=== PATIENT | male | born 1965 | race Caucasian/White ===

== ENCOUNTER 2016-05-01 14:17 | Inpatient (IN) | payer BC ==
--- NOTE | ~2016-05-01 | HP ---
History And Physical [place] [id number] [facility] [place]. [address] NAME: BRISEYDA JOHNSTON : 67 STATUS : ADM IN [facility]#: [id number] AGE: 50 ADM/REG DATE : 05/01/16 MR#: [id number] REPORT SERV DATE: 05/01/16 DICTATED BY: MARTI SANABRIA DATE: 05/01/16 REPORT STATUS : Draft TRANSCRIBED BY: MODL DATE: 05/01/16 DATE OF ADMISSION: 05/01/2016 PRESENT ILLNESS: This 50-year-old white male is admitted at the emergency room with possible osteomyelitis of the spine. Approximately a year ago, he had spine surgery by Dr. Rangel at [facility] defined as a "scraping" of the lumbar spine for symptomatic back pain. Postoperative course was apparently complicated by a dural leak. The patient suggested that he had a "baseball sized" fluid collection visible externally that never drained to the surface and was treated conservatively. He was off work for about three months, but it ultimately resolved and there was no reexploration. He has been doing fine ever since. Approximately two weeks ago, he tripped over a curb and landed on his left knee. Soon thereafter, he began to have pain in his left back that has progressed now to a 9/10 on the pain scale with pain progressively radiating down the left leg. He has not had bowel or bladder incontinence, weakness in the legs, numbness or tingling. He denies fever, chills, or night sweats. He has had some mild self-induced weight loss. He has not had any recent illness in the last few months requiring antibiotics. He did have a sinus infection several months ago treated with cough syrup. Chronic health history mostly notes diabetes on insulin approximately 10 years without recognized complication. He has mild hypertension with no coronary artery disease. He has had kidney stones. Only surgical history is back surgery and tonsillectomy. MEDICATIONS: As listed and include b.i.d. insulin, metformin, Januvia, glipizide, and low- dose lisinopril. ALLERGIES: HE DENIES DRUG ALLERGIES. SOCIAL HISTORY: No tobacco. Minimal alcohol. He is , has two daughters. 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 REVIEW OF SYSTEMS: Otherwise is mostly notable for the pain as above. Sugars have been more elevated recently. No recognized pulmonary complaint, cardiac awareness, GI complaint including bowel or bladder incontinence. No voiding complaints. No dysesthesias in the legs. He has basically been taking ibuprofen for pain relief. PHYSICAL EXAMINATION: GENERAL: He presents to the emergency room, apparently was fairly uncomfortable earlier on. When I see him, he has had some Dilaudid, seems to be comfortable. Moves comfortably. There is no fever. VITAL SIGNS: Blood pressure 133/77. He is in sinus rhythm. HEENT: There is no icterus. There are no evidence of embolic phenomena in the eyes or nail History And Physical [address] [place]. [address] NAME: BRISEYDA JOHNSTON : 67 STATUS : ADM IN [facility]#: [id number] AGE: 50 ADM/REG DATE : 05/01/16 MR#: [id number] REPORT SERV DATE: 05/01/16 DICTATED BY: MARTI SANABRIA DATE: 05/01/16 REPORT STATUS : Draft TRANSCRIBED BY: CLYDE DATE: 05/01/16 beds. No cervical adenopathy. HEENT: Otherwise, normal. LUNGS: Clear. SPINE: Surgery in the lumbar spine looks intact. There is really no palpable tenderness, fluctuance, warmth, erythema, or bruising. HEART: Regular without ectopy. No murmur. No localizing abdominal mass or tenderness. EXTREMITIES: Lower extremities show intact pedal pulses. No edema. He has intact light sensory examination. DTRs are diminished at the knees. Downgoing toes bilaterally. Muscular tendon seems intact. LABORATORY DATA: CT scan of the lumbar spine is being read as showing osteolytic destructive process at L4 and L5 with sclerotic reactions in the bodies there in and findings suggestive strongly of severe [place] [address], hemoglobin 14.2, sedimentation rate 25, sodium 138, potassium 4.2, BUN 12, creatinine 0.9. Blood sugar nonfasting 244 and C-reactive protein 19. IMPRESSION: 1. 50-year-old with increasing back pain, now with x-ray evidence suggesting osteomyelitis. He is about one year out from spine surgery, apparently complicated by dural leak. 2. Diabetes, on insulin. 3. Hypertension, mild. PLAN: The patient is being admitted to Dr. Zavaleta. Dr. Wright has been consulted. We will do surveillance cultures and defer anticipated surgical expiration to Dr. Wright. We will put him just on insulin with sliding scale coverage. We will hold any antibiotics at present pending Dr. Wright' perspective. SANDEE/CLYDE Marti Sanabria M.D. / [id number] CC: Israel Tom D.O.
--- NOTE | ~2016-05-01 | OP ---
Record Of Operation [facility] [address] [place]. [address] NAME: BRISEYDA JOHNSTON : 67 STATUS : ADM IN [facility]#: [id number] AGE: 50 ADM/REG DATE : 05/01/16 MR#: [id number] REPORT SERV DATE: 05/03/16 DICTATED BY: JANI BENTLEY DATE: 05/03/16 REPORT STATUS : Draft TRANSCRIBED BY: MODL DATE: 05/03/16 DATE OF PROCEDURE: 05/03/2016 PREOPERATIVE DIAGNOSES: 1. 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 2. Severe foraminal stenosis, left L4-5. POSTOPERATIVE DIAGNOSES: 1. 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 2. Severe foraminal stenosis, left L4-5. PROCEDURES: 1. Microscopic and navigation-assisted surgery. 2. Left L4-5 hemilaminectomy, foraminotomy, and facetectomy. 3. Transforaminal diskectomy with irrigation and debridement of the interbody space and disk. 4. Anterior interbody titanium cage insertion. 5. Posterolateral interbody fusion with local bone graft allograft. 6. Posterior percutaneous Voyager instrumentation, L4-5. SURGEON: Jani Bentley D.O. VETERINARY TECHNICIAN INSTRUCTOR: Jimbo Umana. ANESTHESIA: General. BLOOD LOSS: 50 mL. INDICATIONS FOR SURGERY: Indications for surgery and risks were explained. They are listed in history and physical. See that for detail. DESCRIPTION OF OPERATION: Antibiotic prophylaxis given. Neurophysiology monitoring leads inserted. The patient brought to the operative suite, where general anesthetic including endotracheal intubation was administered. Elizondo catheter was inserted with sterile technique. The patient was placed prone on a Bennie spine frame. Bony prominences were carefully padded. Thoracolumbar spine was scrubbed with Hibiclens solution. DuraPrep was painted. Sterile drapes applied. Because of the complexity of surgery and the need to identify correct level of surgery intraoperatively as well as desire to carry out the safest most precise dissection with the least amount of radiation exposure, I felt intraoperative navigation was mandatory. A small stab wound was carried out over the right posterior superior iliac spine. A percutaneous pin with navigational frame attached was inserted in PSIS. Intraoperative CT scan with O-arm obtained, CT information used to register the navigational system. Record Of Operation [facility] [address] [place]. [address] NAME: BRISEYDA JOHNSTON : 67 STATUS : ADM IN PAT#: [id number] AGE: 50 ADM/REG DATE : 05/01/16 MR#: [id number] REPORT SERV DATE: 05/03/16 DICTATED BY: JANI BENTLEY DATE: 05/03/16 REPORT STATUS : Draft TRANSCRIBED BY: CLYDE DATE: 05/03/16 With navigational assistance, I identified the facet joint of L4-5. Just lateral to the facet joint on the left side, a 2.5 cm skin incision was carried out. A blunt navigated probe placed through the fascia and muscle and docked over the facet joint. Muscle dilators were inserted followed by placement of a tubular retractor attached to an arm mount on the table. Microscope was sterilely draped and used throughout the remainder of the procedure. With navigational assistance, I identified the top of the pedicle of L5 and the anterior pedicle of L4. I debrided the capsule around the facet joint. I used navigation to identify the medial boundary of the facet joint where there had been a previous laminectomy. I then used a combination of cutting burs, ila burs, and 2 and 3 mm Kerrison rongeurs, and I worked from lateral to medial removing the entire superior articular process of L5, the inferior articular process of L4, the pars interarticularis of L4, and the remaining lamina as well as inferior articular process of L4. No dural tears occurred. I was able to completely debride the joint. There was facet hypertrophy that was definitely contributing to lateral foraminal stenosis and L4 nerve impingement. The disk space was rather swollen, boggy, and as we opened, a serous-type fluid was present. Cultures were taken. We cleaned out the disk space with curettes, rongeurs, and luis angel. We sent some of the disk itself for culturing. We also took a second set of cultures from the interbody space. We completely debrided the disk space and then copiously irrigated the interbody space. We were able to remove essentially 80% to 90% of the disk. There was a definite large filling defect in the left side of the inferior body of L4. After we had debrided the disk and copiously irrigated, the wound was carefully inspected. We then did a trial. I packed the cancellous allograft chips in the bone defect. Because of the infection, I would not use any PEEK material, instead I used a 9 mm in height oblong titanium mesh cage. Cage was inserted x2, initially just right of midline against the anterior longitudinal ligament and the second one just slightly left of midline and slightly posterior to the first cage. We then copiously filled the interbody space with a combination of the local bone graft and allograft. After the interbody fusion was completed, the retractor was removed. I then carried out a 2.5 to 3 cm skin incision on the right side just lateral to the facet joint as I had done on the left. I then used a Voyager percutaneous pedicle tap and screw store operations associate. I tapped the pedicles of L4 and 5 bilaterally. I then inserted polyaxial 6.5 x 50 mm Voyager screws at all locations. After the screws were placed, a 35 mm contoured lordotic dumbbell rods were placed in the top portion of the screw extenders, the adolfo reduced into the tulip of the pedicle screw. The set screw was inserted and tightened with a torque wrench providing rigid stability. Wounds were irrigated. The fascial opening was closed with interrupted #1 Vicryl suture, the subcutaneous tissue closed with 2-0 Vicryl sutures, 2-0 vertical mattress nylon suture used for skin closure. Sterile dressings applied. The patient returned to the supine position, awakened, extubated, taken to recovery room in satisfactory condition having tolerated procedure well. BRAULIO/CLYDE Jani Bentley D.O. Record Of Operation [address] [address] NAME: BRISEYDA JOHNSTON : 67 STATUS : ADM IN [facility]#: [id number] AGE: 50 ADM/REG DATE : 05/01/16 MR#: [id number] REPORT SERV DATE: 05/03/16 DICTATED BY: JANI BENTLEY DATE: 05/03/16 REPORT STATUS : Draft TRANSCRIBED BY: MODL DATE: 05/03/16 / [id number] CC: Wander Zavaleta M.D.
--- NOTE | ~2016-05-01 | DS ---
Discharge Summary [facility] [address] [place]. [address] NAME: BRISEYDA JOHNSTON : 67 STATUS : DIS IN PAT#: [id number] AGE: 50 ADM/REG DATE : 05/01/16 MR#: [id number] REPORT SERV DATE: 05/14/16 DICTATED BY: DESTINEY PHAM DATE: 05/13/16 REPORT STATUS : Draft TRANSCRIBED BY: MODSunny DATE: 05/13/16 Data Collection from hospitalization DISCHARGE DIAGNOSES: 1. Osteomyelitis, L4-5. 2. Diskitis, L4-5. 3. Type 2 diabetes mellitus. 4. Hypokalemia. 5. Hypertension. CONSULTATIONS: 1. Jani Wright D.O. 2. Charlie Jackson M.D. PROCEDURES PERFORMED: 1. Microscopic and navigation-assisted surgery; left L4-5 hemilaminectomy, foraminotomy, and facetectomy; transforaminal diskectomy with irrigation and debridement of the interbody space and disk; anterior interbody titanium cage insertion; posterolateral interbody fusion with local bone graft allograft; posterior percutaneous Voyager instrumentation, L4-5 on 05/03/2016. 2. MRI of the lumbar spine with and without contrast on 05/01/2016. 3. CT scan of the lumbar spine without contrast on 05/01/2016. PATHOLOGY: Bone and soft tissue, lumbar spine - fragments of bone with chronic osteomyelitis, also fragments of soft tissue with marked acute inflammation. MEDICATIONS: Cipro 500 mg every 12 hours, Glucotrol XL 2.5 mg daily, Advil 400 mg twice a day as needed, Lantus 30 units subcutaneously every morning and 50 units subcutaneously at bedtime, Prinivil 2.5 mg every morning, Fortamet 500 mg twice a day, Robaxin 750 mg every eight hours, Roxicodone 10 mg every four hours as needed, and Januvia 100 mg every morning. CONDITION AT DISCHARGE: Stable. DISPOSITION: The patient was discharged home to be followed by home health care on a 2200- calorie diabetic diet with activities as instructed. He would follow up with me on 05/12/2016. He would follow up with Dr. Charlie Jackson on 05/31/2016. He would follow up with Gloria Mayo on 05/18/2016. HOSPITAL COURSE: This is a 50-year-old man who presented to the emergency room with possible osteomyelitis of the spine. Approximately a year ago, he had spine surgery by Dr. Rangel at [facility], which was described as "scraping" of the lumbar spine for symptomatic back pain. His postoperative course was apparently complicated by a dural leak. The patient had suggested that he had a "baseball sized" fluid collection visible externally that never drained and was treated conservatively. He had been off work for about three months, but it ultimately resolved and there was no reexploration. He had been doing fine ever since. Approximately two weeks prior to this admission, he tripped over a curb and landed on his left knee. Soon thereafter, he began to have pain in his left back that progressed to 9/10 on the pain scale with the pain progressively radiating down the left leg. He has not had Discharge Summary [address] [place]. [address] NAME: BRISEYDA JOHNSTON : 67 STATUS : DIS IN PAT#: [id number] AGE: 50 ADM/REG DATE : 05/01/16 MR#: [id number] REPORT SERV DATE: 05/14/16 DICTATED BY: DESTINEY PHAM DATE: 05/13/16 REPORT STATUS : Draft TRANSCRIBED BY: MODL DATE: 05/13/16 any bowel or bladder incontinence, weakness in the legs or numbness or tingling. He did have a sinus infection several months ago and had been treated with cough syrup. He was admitted to the hospital at this time for further evaluation and treatment. Upon admission, a CT scan of the lumbar spine revealed osteolytic destructive process at L4 and L5 with sclerotic reactions in the body there in and findings strongly suggestive of severe osteomyelitis. White blood cell count was 10,300. He was felt to have x-ray evidence suggesting osteomyelitis. Surveillance cultures were going to be obtained. Sliding scale insulin was started. He was seen by Dr. Jani Wright regarding intractable back pain, left hip and leg pain. An MRI of the lumbar spine had also been performed. The patient had severe disk degeneration and probable osteomyelitis and diskitis at L4-5. He has [id number] foraminal stenosis at left L4-5 and severe disk degeneration, [id number] left foraminal stenosis at L5-S1. It was felt that the best option would be to proceed with left-sided decompression and facetectomy to resolve the foraminal stenosis. At the same time, diskectomy was completed, cultures would be reobtained prior to any antibiotics and reconstruction with interbody arthrodesis would be carried out. Sliding scale insulin continued. Plans were made to proceed with surgical intervention. On 05/03/2016, he was taken to the operating room where he underwent the above-mentioned procedure. He tolerated this well, and there were no complications. White blood cell count was 10.3. When he came in, it was 12 on the day prior to surgery and was now 15.3. His impression included spinal osteomyelitis/diskitis, possibly related to his past surgery, although it would be rather unusual as this had not given more trouble since that was over a year ago. It could be that he has bacteremia from some other source and it seeded the previous operative site. Cultures would be followed. Antibiotics would be adjusted as indicated. He is going to be covered empirically for now with vancomycin and cefepime. On postop day #1, he was feeling better. He was afebrile. White count was 15.3. Blood cultures were negative. Cultures from surgery were negative thus far. He was changed to oral medications. He was evaluated by Physical Therapy. He had mild discomfort. He was able to be up and around in his room. The Elizondo catheter was removed. He was urinating well. His T-max was 100. Sliding scale insulin continued. Levemir was increased. The next day, discharge planning was performed. He had no new symptoms. White count was 12.9. All cultures remained negative. On 05/06/2016, he had no new complaints. He was alert and cooperative. A PICC line was inserted. He had no new symptoms. Discharge instructions were given. Due to his improved and stable condition, he was discharged home to be followed by home health care with the above-stated instructions. Information collected by: Kavya Andino I submit the above information as my discharge summary. ALYSSA/CLYDE Destiney Pham M.D. / [id number] Discharge Summary [address] [place] [address] NAME: BRISEYDA JOHNSTON : 67 STATUS : DIS IN PAT#: [id number] AGE: 50 ADM/REG DATE : 05/01/16 MR#: [id number] REPORT SERV DATE: 05/14/16 DICTATED BY: DESTINEY PHAM DATE: 05/13/16 REPORT STATUS : Draft TRANSCRIBED BY: MODL DATE: 05/13/16 CC: Israel Tom D.O. Mark Anderson, M.D.
--- NOTE | ~2016-05-01 | CN ---
Consultation Report [facility] [address] [place]. [address] NAME: BRISEYDA JOHNSTON : 67 STATUS : ADM IN PAT#: [id number] AGE: 50 ADM/REG DATE : 05/01/16 MR#: [id number] REPORT SERV DATE: 05/02/16 DICTATED BY: JANI BENTLEY DATE: 05/02/16 REPORT STATUS : Draft TRANSCRIBED BY: MODSunny DATE: 05/02/16 DATE OF CONSULTATION: CHIEF COMPLAINT: Intractable back pain, left hip, leg pain. 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 Elliot Rangel. The only issue with the surgery was the patient had a postoperative dural tear, and did have a visible fluid collection, but it never drained and ultimately was treated nonoperatively. The dural tear ultimately did resolve. The patient has had no headaches or other sequelae of the dural tear. It did take him about three months to return to normal activity and back to work, but he did return to work as a REPAIRER [employer] W[employer]ING [employer]ES unrestricted and has had no issues until two weeks ago. When he fell, landing on his left knee and his left knee directly hit the ground. He almost immediate onset of increasing amounts of back pain, left hip and leg pain. Now his pain is approximately 60% back, 40% leg. The pain has gotten so disabling that he came to the ER due to the pain. As noted in Dr. Jersey Hughes's history and physical, he has had no sequelae such as fever, chills, night sweats, etc. He has had really no evidence of infection. While lying flat in bed, he does not have a lot of pain. His pain is markedly worse when standing, walking, or when trying to sit for long periods of time. In the ER, the patient had a CT scan and to everyone's surprise, showed a marked decrease in the disk height of L4-5 and there was endplate disruption, particularly inferior endplate of L4, some disruption of the superior endplate of L5. This is all compatible with possible osteomyelitis, diskitis. A MRI was obtained and the MRI shows complete collapse of the disk space. There is a diskitis per the imaging. There is definitely involvement of the inferior interbody and the endplate of L4 as well as superior endplate of L5. When comparing the MRI from 04/2015 to the MRI 2017, there has been a marked change. In 2016, the disk was of almost normal height and did have some central and right-sided herniation. There was also central canal and lateral recess stenosis. The 2017 MRI does show the stenosis to be largely resolved, but he does have rather marked foraminal stenosis worse on the left than the right. The more importantly the disk is completely collapsed and there is diskitis, osteomyelitis per the MRI. In addition, there is incidental finding rather severe disk degeneration, collapse of the disk space, and moderate to severe foraminal stenosis on the left at L5-S1. This appears to be not a lot different than 2016, although it has slightly worsened as far as the collapse. Currently, the patient has no change in bowel or bladder function. Pain when in bed is only 4, but when sitting, standing, or walking it is still an 8 or a 9 on a scale of 0 to 10. The chart has been reviewed in its entirety. Past medical history, surgical history, current medications, allergies, social history, family history are all noted in the H and P by Dr. Jersey Hughes. PHYSICAL EXAMINATION: He is alert, cooperative, well oriented. He was able to turn himself in bed without problems. When percussing over the lower lumbar spine, he definitely has rather marked Consultation Report [facility] [id number] [place]. [address] NAME: BRISEYDA JOHNSTON : 67 STATUS : ADM IN [facility]#: [id number] AGE: 50 ADM/REG DATE : 05/01/16 MR#: [id number] REPORT SERV DATE: 05/02/16 DICTATED BY: JANI BENTLEY DATE: 05/02/16 REPORT STATUS : Draft TRANSCRIBED BY: MODL DATE: 05/02/16 pain. There is no swelling, erythema, or other abnormality. Just soft-tissue palpation is nontender and does not elicit any kind of painful response. Rafael signs are negative. Fabere signs are negative. Straight leg raising signs are negative. He has 1/4 patellar reflexes. Achilles reflexes are absent. There is some decreased sensation in the L5 distribution on the left compared to the right, but overall his motor strengths appear to be grossly normal. No evidence of myelopathy is found. Orthopedically, he has no pain with moving hips, knees, or ankles. There are pulses in all four extremities. No abnormal skin lesions are found. MRI reviewed and there are outlined as above and I agree with the reports as noted in the chart. ASSESSMENT: 1. Previous L4-5 decompressive laminectomy, diskectomy with postoperative CSF leak, treated nonoperatively. 2. Severe disk degeneration, probable osteomyelitis, diskitis L4-5. 3. Moderate to severe foraminal stenosis, left L4-5. 4. Severe disk degeneration, moderate to severe left foraminal stenosis L5-S1. RECOMMENDATIONS: At this time, obviously the most compelling reason for any intervention would be the diskitis, osteomyelitis of L4-5. If he has had problems with this since his surgery years ago, he has not had a lot of clinical symptoms, but the most likely time of introduction would have been at the time of the original surgery one year ago. If there has been some infection for year, this is fairly nonaggressive organism such as a status epidermis etc. Based on the above, the options are to either do a CT-guided aspiration and try to treat with just IV antibiotics. This does not resolve the underlying issue of rather foraminal stenosis that is present. If we did a CT-guided aspiration and it was negative, then we are faced with an open biopsy, etc. CT guided aspirations are a positive approximately 70% of the time in this facility and thus after discussion with the patient I believe the best option to proceed with a left-sided decompression and facetectomy to resolve the foraminal stenosis. At the same time, the diskectomy completed. Cultures reobtained prior to any antibiotics and reconstruction with interbody arthrodesis will be carried out. I have gone over the risks, benefits, alternatives, and expectations in great detail. Consent form will be signed. According to the patient, he wants to proceed to try to resolve this. Once improves, then he can return to a more gainful permanent employment. I have warned the patient that I believe there is an 80% chance. He will be able to return to his usual job. There is a 20% chance that he could have some long-term residual chronic back pain that would require altered job duties. ANGELIKA Jani Consultation Report [facility] [address] [address] NAME: BRISEYDA JOHNSTON : 67 STATUS : ADM IN PAT#: [id number] AGE: 50 ADM/REG DATE : 05/01/16 MR#: [id number] REPORT SERV DATE: 05/02/16 DICTATED BY: JANI BENTLEY DATE: 05/02/16 REPORT STATUS : Draft TRANSCRIBED BY: MODL DATE: 05/02/16 Millie Bentley / [id number] CC: Wander Zavaleta M.D.
--- NOTE | ~2016-05-01 | CN ---
Consultation Report [facility] [address] [place]. [address] NAME: BRISEYDA JOHNSTON : 67 STATUS : ADM IN PAT#: [id number] AGE: 50 ADM/REG DATE : 05/01/16 MR#: [id number] REPORT SERV DATE: 05/03/16 DICTATED BY: OLIVER MCNEAL DATE: 05/03/16 REPORT STATUS : Draft TRANSCRIBED BY: MODL DATE: 05/03/16 INFECTIOUS DISEASE CONSULT DATE OF CONSULTATION: REFERRING PHYSICIAN: Dr. Jani Wright. REASON FOR REFERRAL: Evaluation and treatment of spine infection. HISTORY OF PRESENT ILLNESS: The patient is a 50-year-old male. He has history of hypertension, diabetes mellitus, past kidney stones. A year ago, he had a lumbar spine surgery of some type, which I do not have the details of. This was done by Dr. Rangel at [facility]. He had a complication of a dural leak and it took about three months for that to resolve, but eventually it did without further intervention. He then was able to go back to work and has been doing fine until about two-three weeks ago when he fell at work on to his left knee and it was hard fall, jarring pain that radiated up into his back and then his back began to hurt, progressively worse and worse since then. It began to radiate down into his leg, so he came into the emergency room, was imaged, and on the CT scan, there were changes in the L4-5 disc and adjacent vertebral bodies suggestive of infection. He had no fevers, chills, malaise, or flu-like symptoms. His white blood cell count was elevated at 11.5, but exhibited no other signs to suggest infection. Antibiotics were fortunately held and he went to surgery and had a debridement while on no antibiotics this morning and material was submitted for cultures thus far and the Gram stain was back and it showed no organisms. He says he has not been on antibiotics for infections anywhere else on his body in the last six-eight months. No boils, urinary tract infections, etc. 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 PAST MEDICAL HISTORY: Otherwise unremarkable. MEDICATIONS: He has perioperative doses of vancomycin and Ancef. ALLERGIES: HE HAS NO KNOWN ANTIMICROBIAL ALLERGIES. SOCIAL HISTORY: He is . He has supportive family in the room with him. Nonsmoker. No history of alcohol or substance abuse. Employment as previously mentioned. FAMILY HISTORY: Noncontributory. PHYSICAL EXAMINATION: GENERAL: A nontoxic, adult male, in no acute distress. He is alert and oriented x3. VITAL SIGNS: His temperature of 98.3 with a pulse of 96, respirations 12, blood pressure 133/69, weight 111 kg. HEENT: Sclerae clear. No oral lesions. Consultation Report [address] [place]. [address] NAME: BRISEYDA JOHNSTON : 67 STATUS : ADM IN [facility]#: [id number] AGE: 50 ADM/REG DATE : 05/01/16 MR#: [id number] REPORT SERV DATE: 05/03/16 DICTATED BY: OLIVER MCNEAL DATE: 05/03/16 REPORT STATUS : Draft TRANSCRIBED BY: CLYDE DATE: 05/03/16 NECK: Supple without meningeal signs or lymphadenopathy. LUNGS: Clear anteriorly. HEART: Regular rate and rhythm. ABDOMEN: Soft, nontender. Positive bowel sounds. The wound was covered with a new surgical dressing, it was not removed. EXTREMITIES: Without clubbing, cyanosis, or edema. No swollen, red, or hot joints. No skin lesions or rashes noted. IV site without signs of inflammation in the right upper extremity. LABORATORY DATA: Blood work: His white count was 10.3 when he came in, it was 12 yesterday and 15.3 today, with a hematocrit of 37.9, platelets 258. Unremarkable differential on the white count. His sed rate yesterday was 28. BUN and creatinine are 17 and 0.86. IMPRESSION: Spinal osteomyelitis/discitis, potentially related to his past surgery, though it would be rather unusual as this has not given more trouble since that was over a year ago. It could be he has bacteremia from some other source and it seeded the previous operative site. RECOMMENDATIONS: 1. We will follow up the cultures tomorrow. We will adjust antibiotics as indicated. 2. For now, we will cover him empirically using vancomycin and cefepime. 3. Follow the patient with you. I appreciate very much your consulting on this patient. ZACARIAS Oliver Mcneal M.D. / [id number] CC: Israel Tom M.D. Scott Hodges, D.O.
[2016-05-01 10:54] LABS: BASOPHILS 0.2 %; BASOPHILS ABSOLUTE 0.02 10/3/uL (0.0-0.16); EOSINOPHILS 3.4 %; EOSINOPHILS ABSOLUTE 0.35 10/3/uL (0.0-0.53); HEMATOCRIT 41.1 % (40.0-51.0); HEMOGLOBIN 14.2 g/dL (13.6-17.8); IMMATURE GRANULOCYTES 0.2 %; IMMATURE GRANULOCYTES ABSOLUTE 0.02 10/3/uL (0.0-0.11); LYMPHOCYTES 16.6 %; MEAN CORPUS HGB CONC 34.5 g/dL (32.0-36.0); MEAN CORPUSCULAR HEMOGLOB 27.8 pg (26.0-34.0); MEAN PLATELET VOLUME 9.6 fL (9.2-13.0); MONOCYTES 8.8 %; NEUTROPHILS 70.8 %; NEUTROPHILS ABSOLUTE 7.28 10/3/uL (2.02-8.40); PLATELET COUNT 249 10/3/uL (150-400); RBC DISTRIBUTION WIDTH 13.5 % (12.0-16.0); WHITE BLOOD CELLS 10.3 10/3/uL (4.5-10.5)
[2016-05-01 10:56] LABS: MANUAL DIFF NO %; MEAN CORPUSCULAR VOLUME 80.6 fL (80-100)
[2016-05-01 11:07] LABS: BUN (BLOOD UREA NITROGEN) 12 MG/DL (6-23); CALCIUM, SERUM 9.2 MG/DL (8.5-10.4); CHLORIDE, SERUM 103 MMOL/L (96-112); CO2 (CARBON DIOXIDE) 25 MMOL/L (24-34); CREATININE 0.91 MG/DL (0.70-1.30); GFR AFRICAN AMERICAN 114 ML/MIN (>=60); GFR NON AFRICAN AMERICAN 99 ML/MIN (>=60); GLUCOSE, SERUM 244 MG/DL (60-99); POTASSIUM, SERUM 4.2 MMOL/L (3.5-5.3); SODIUM, SERUM 138 MMOL/L (135-148)
[2016-05-01 13:30] LABS: ASCORBIC ACID (UR NOT ORDER) NEG (NEG); BILIRUBIN, URINE NEGATIVE (NEG); ER URINALYSIS TAT 0 Hrs 18 Mins; KETONE, URINE NEGATIVE (NEG); LEUKOCYTE ESTERASE(NOT OR NEG (NEG); NITRITE (URINE) NEG (NEG); WBC (NOT ORDERED) (RFLEX) < 1 (0-5)
[2016-05-01 13:33] LABS: SED RATE 25 MM/HR (0-15)
[2016-05-01 13:41] LABS: C-REACTIVE PROTEIN 19.1 MG/L (<8.0)
[~2016-05-01 14:17] MED LIST: ADVIL PO; BIOFREEZE OINTMENT TOP; FORTAMET500 MG PO; GLUCXL2.5 PO; JANUVIA100 MG PO; LANTUSCART SC; PRIN2.5 PO; SALONPAS-HOT TOP
[2016-05-02 05:03] LABS: BASOPHILS 0.1 %; BASOPHILS ABSOLUTE 0.01 10/3/uL (0.0-0.16); EOSINOPHILS 0.1 %; EOSINOPHILS ABSOLUTE 0.01 10/3/uL (0.0-0.53); HEMATOCRIT 38.7 % (40.0-51.0); HEMOGLOBIN 13.3 g/dL (13.6-17.8); IMMATURE GRANULOCYTES 0.3 %; IMMATURE GRANULOCYTES ABSOLUTE 0.03 10/3/uL (0.0-0.11); LYMPHOCYTES 13.1 %; LYMPHOCYTES ABSOLUTE 1.57 10/3/uL (0.67-4.30); MEAN CORPUS HGB CONC 34.4 g/dL (32.0-36.0); MEAN CORPUSCULAR HEMOGLOB 27.7 pg (26.0-34.0); MEAN CORPUSCULAR VOLUME 80.5 fL (80-100); MEAN PLATELET VOLUME 9.8 fL (9.2-13.0); MONOCYTES 7.5 %; NEUTROPHILS 78.9 %; NEUTROPHILS ABSOLUTE 9.47 10/3/uL (2.02-8.40); PLATELET COUNT 289 10/3/uL (150-400); RBC DISTRIBUTION WIDTH 13.5 % (12.0-16.0); RED CELL COUNT 4.81 10/6/uL (4.7-6.1)
[2016-05-02 05:05] LABS: MANUAL DIFF NO %
[2016-05-02 05:14] LABS: A/G RATIO 0.7 (0.7-1.9); ALKALINE PHOSPHATASE 110 U/L (45-117); BUN (BLOOD UREA NITROGEN) 15 MG/DL (6-23); C-REACTIVE PROTEIN 26.4 MG/L (<8.0); CALCIUM, SERUM 8.7 MG/DL (8.5-10.4); CHLORIDE, SERUM 105 MMOL/L (96-112); CO2 (CARBON DIOXIDE) 25 MMOL/L (24-34); CREATININE 0.83 MG/DL (0.70-1.30); GFR AFRICAN AMERICAN 120 ML/MIN (>=60); GFR NON AFRICAN AMERICAN 103 ML/MIN (>=60); GLOBULIN 4.1 G/DL (2.5-4.1); GLUCOSE, SERUM 246 MG/DL (60-99); POTASSIUM, SERUM 4.2 MMOL/L (3.5-5.3); SGOT(AST) 8 U/L (5-40); SGPT(ALT) 16 U/L (5-65); SODIUM, SERUM 138 MMOL/L (135-148); TOTAL BILIRUBIN 0.4 MG/DL (0-1.2); TOTAL PROTEIN 7.1 G/DL (6.0-8.5)
[2016-05-02 05:50] LABS: SED RATE 28 MM/HR (0-15)
[2016-05-03 09:41] LABS: BASOPHILS 0.1 %; BASOPHILS ABSOLUTE 0.02 10/3/uL (0.0-0.16); EOSINOPHILS 0.5 %; EOSINOPHILS ABSOLUTE 0.08 10/3/uL (0.0-0.53); HEMATOCRIT 37.9 % (40.0-51.0); HEMOGLOBIN 12.7 g/dL (13.6-17.8); IMMATURE GRANULOCYTES 0.3 %; IMMATURE GRANULOCYTES ABSOLUTE 0.04 10/3/uL (0.0-0.11); LYMPHOCYTES 10.4 %; LYMPHOCYTES ABSOLUTE 1.58 10/3/uL (0.67-4.30); MEAN CORPUS HGB CONC 33.5 g/dL (32.0-36.0); MEAN CORPUSCULAR HEMOGLOB 27.4 pg (26.0-34.0); MEAN CORPUSCULAR VOLUME 81.9 fL (80-100); MEAN PLATELET VOLUME 9.7 fL (9.2-13.0); MONOCYTES ABSOLUTE 0.46 10/3/uL (0.21-1.20); NEUTROPHILS 85.7 %; NEUTROPHILS ABSOLUTE 13.07 10/3/uL (2.02-8.40); PLATELET COUNT 258 10/3/uL (150-400); RBC DISTRIBUTION WIDTH 13.6 % (12.0-16.0); RED CELL COUNT 4.63 10/6/uL (4.7-6.1); WHITE BLOOD CELLS 15.3 10/3/uL (4.5-10.5)
[2016-05-03 09:50] LABS: BUN (BLOOD UREA NITROGEN) 17 MG/DL (6-23); CALCIUM, SERUM 8.2 MG/DL (8.5-10.4); CHLORIDE, SERUM 105 MMOL/L (96-112); CO2 (CARBON DIOXIDE) 24 MMOL/L (24-34); CREATININE 0.86 MG/DL (0.70-1.30); GFR AFRICAN AMERICAN 118 ML/MIN (>=60); GFR NON AFRICAN AMERICAN 102 ML/MIN (>=60); GLUCOSE, SERUM 241 MG/DL (60-99); POTASSIUM, SERUM 4.1 MMOL/L (3.5-5.3); SODIUM, SERUM 138 MMOL/L (135-148)
[2016-05-04 04:12] LABS: BASOPHILS 0.1 %; BASOPHILS ABSOLUTE 0.01 10/3/uL (0.0-0.16); EOSINOPHILS 0.4 %; EOSINOPHILS ABSOLUTE 0.05 10/3/uL (0.0-0.53); HEMATOCRIT 38.7 % (40.0-51.0); IMMATURE GRANULOCYTES 0.2 %; IMMATURE GRANULOCYTES ABSOLUTE 0.03 10/3/uL (0.0-0.11); LYMPHOCYTES 15.5 %; LYMPHOCYTES ABSOLUTE 2.04 10/3/uL (0.67-4.30); MEAN CORPUS HGB CONC 33.6 g/dL (32.0-36.0); MEAN CORPUSCULAR HEMOGLOB 27.3 pg (26.0-34.0); MEAN CORPUSCULAR VOLUME 81.3 fL (80-100); MEAN PLATELET VOLUME 9.8 fL (9.2-13.0); MONOCYTES 12.2 %; MONOCYTES ABSOLUTE 1.61 10/3/uL (0.21-1.20); NEUTROPHILS 71.6 %; NEUTROPHILS ABSOLUTE 9.43 10/3/uL (2.02-8.40); PLATELET COUNT 265 10/3/uL (150-400); RBC DISTRIBUTION WIDTH 13.3 % (12.0-16.0); RED CELL COUNT 4.76 10/6/uL (4.7-6.1); WHITE BLOOD CELLS 13.2 10/3/uL (4.5-10.5)
[2016-05-04 04:17] LABS: CALCIUM, SERUM 8.5 MG/DL (8.5-10.4); CHLORIDE, SERUM 100 MMOL/L (96-112); CO2 (CARBON DIOXIDE) 26 MMOL/L (24-34); CREATININE 0.78 MG/DL (0.70-1.30); GFR AFRICAN AMERICAN 123 ML/MIN (>=60); GFR NON AFRICAN AMERICAN 106 ML/MIN (>=60); GLUCOSE, SERUM 235 MG/DL (60-99); POTASSIUM, SERUM 3.8 MMOL/L (3.5-5.3); SODIUM, SERUM 136 MMOL/L (135-148)
[2016-05-04 04:19] LABS: MANUAL DIFF NO %
[2016-05-04 04:42] LABS: BUN (BLOOD UREA NITROGEN) 11 MG/DL (6-23)
[2016-05-05 05:06] LABS: BASOPHILS 0.1 %; BASOPHILS ABSOLUTE 0.01 10/3/uL (0.0-0.16); EOSINOPHILS 0.4 %; EOSINOPHILS ABSOLUTE 0.05 10/3/uL (0.0-0.53); HEMATOCRIT 38.8 % (40.0-51.0); HEMOGLOBIN 13.2 g/dL (13.6-17.8); IMMATURE GRANULOCYTES 0.2 %; IMMATURE GRANULOCYTES ABSOLUTE 0.03 10/3/uL (0.0-0.11); LYMPHOCYTES 15.8 %; LYMPHOCYTES ABSOLUTE 2.04 10/3/uL (0.67-4.30); MEAN CORPUSCULAR HEMOGLOB 27.7 pg (26.0-34.0); MEAN CORPUSCULAR VOLUME 81.5 fL (80-100); MEAN PLATELET VOLUME 10.1 fL (9.2-13.0); MONOCYTES 12.5 %; MONOCYTES ABSOLUTE 1.62 10/3/uL (0.21-1.20); NEUTROPHILS ABSOLUTE 9.16 10/3/uL (2.02-8.40); PLATELET COUNT 241 10/3/uL (150-400); RBC DISTRIBUTION WIDTH 13.6 % (12.0-16.0); RED CELL COUNT 4.76 10/6/uL (4.7-6.1); WHITE BLOOD CELLS 12.9 10/3/uL (4.5-10.5)
[2016-05-05 05:07] LABS: MANUAL DIFF NO %
[2016-05-05 05:22] LABS: BUN (BLOOD UREA NITROGEN) 8 MG/DL (6-23); CHLORIDE, SERUM 100 MMOL/L (96-112); CO2 (CARBON DIOXIDE) 25 MMOL/L (24-34); CREATININE 0.76 MG/DL (0.70-1.30); GFR AFRICAN AMERICAN 124 ML/MIN (>=60); GFR NON AFRICAN AMERICAN 107 ML/MIN (>=60); GLUCOSE, SERUM 190 MG/DL (60-99); POTASSIUM, SERUM 3.4 MMOL/L (3.5-5.3); SODIUM, SERUM 138 MMOL/L (135-148)
[2016-05-06] MEDS ORDERED: OXYCOD PO (09:30)
[2016-05-06] MEDS ORDERED: CIP5 PO (09:30)
[2016-05-06] MEDS ORDERED: METHOC750B PO (09:31)
== END 2016-05-06 16:44 | disposition home health service (06) | DRG 460 ==
LOC: ER 14:17 → 3SO 18:41
PROVIDERS: Emergency Medicine; Internal Medicine Infectious Disease; Nurse Practitioner Family; Orthopaedic Surgery Orthopaedic Surgery of the Spine
PROC: 0SG00AJ Fusion of Lumbar Vertebral Joint with Interbody Fusion Device, Posterior Approach, Anterior Column, Open Approach (ICD-10-PCS; principal; 2016-05-03 05:45)
PROC: 0QB00ZZ Excision of Lumbar Vertebra, Open Approach (ICD-10-PCS; 2016-05-03 05:45)
PROC: 0SG0071 Fusion of Lumbar Vertebral Joint with Autologous Tissue Substitute, Posterior Approach, Posterior Column, Open Approach (ICD-10-PCS; 2016-05-03 05:45)
PROC: 0ST20ZZ Resection of Lumbar Vertebral Disc, Open Approach (ICD-10-PCS; 2016-05-03 05:45)
PROC: 4A11X4G Monitoring of Peripheral Nervous Electrical Activity, Intraoperative, External Approach (ICD-10-PCS; 2016-05-03 05:45)
PROC: 02HV33Z Insertion of Infusion Device into Superior Vena Cava, Percutaneous Approach (ICD-10-PCS; 2016-05-05)
PROC: 4A02X4A Measurement of Cardiac Electrical Activity, Guidance, External Approach (ICD-10-PCS; 2016-05-05)
DX: M46.46 Discitis, unspecified, lumbar region (principal); E11.69 Type 2 diabetes mellitus with other specified complication; M46.26 Osteomyelitis of vertebra, lumbar region; I10 Essential (primary) hypertension; E87.6 Hypokalemia; Z23 Encounter for immunization; Z79.4 Long term (current) use of insulin
CPT/HCPCS: 36569; 72131; 72158; 80048; 80053; 80202; 81001; 82962; 83735; 85025; 85652; 86140; 87015; 87040; 87070; 87075; 87102; 87116; 87205; 87641; 88304; 88311; 90686; 93005; 96374; 96375; 96376; 97116-GP; 97161-GP; 99285; A9270-GY; A9577; C1713; C1751; G0008; J0690; J0692; J1170; J1644; J2250; J2405; J2710; J3010; J3360; J3370